=== PATIENT | female | born 1980 | race Caucasian/White ===

== ENCOUNTER → 2016-11-29 | Outpatient (CLI) | payer BC ==
--- NOTE | 2016-11-29 14:53 | RADIOLOGY REPORT (SQ) ---
EXAM DESCRIPTION: HYSTERO W/WO COLR FLW DOPPLER COMPLETED DATE/TIME: 11/29/2016 2:27 pm REASON FOR STUDY: INFERTILITY N97.9 FEMALE INFERTILITY, UNSPECIFIED COMPARISON: None. TECHNIQUE: Dynamic and static grayscale images acquired of the pelvis via transvaginal approach and recorded on PACS. Additional selected color Doppler and spectral images recorded. Initial imaging of the pelvis was performed transvaginally, without a catheter in place. After insertion of a vaginal speculum, a 5 Frenchhysterosalpingogram catheter was placed with the tip in the cervix/lower uterine segment. Speculum removed, and repeat endovaginal ultrasound was perform ed during gentle hand injection of sterile saline into the endometrial canal. LIMITATIONS: None. FINDINGS: UTERUS: Contour normal. No mass. The uterus measures 9 x 4.7 x 4 cm in size. ENDOMETRIAL STRIPE: No focal or generalized thickening. No masses. No endometrial polyps or cysts. O n the pre saline images, endometrial stripe measures 10 mm in thickness. On the post saline images, there is no evidence of synechiae. Smooth endometrial surface. CERVIX: 7 mm nabothian cyst. RIGHT OVARY: No abnormal masses. Right ovary 1.5 x 1.6 x 1.4 cm in size RIGHT OVARY DOPPLER: Normal arterial vascular flow without evidence for torsion. LEFT OVARY: No abnormal masses. Left ovary 2.3 x 1.2 x 1.4 cm in size LEFT OVARY DOPPLER: Normal arterial vascular flow without evidence for torsion. FREE FLUID: None noted. OTHER: No other significant finding. IMPRESSION: NORMAL TRANSVAGINAL PELVIC ULTRASOUND WITH HYSTEROSONOGRAM TECHNIQUE. TECHNICAL DOCUMENTATION: JOB ID: [id number] All Rights Reserved
== END ==
LOC: RAD 12:39
PROVIDERS: ATTEND Obstetrics & Gynecology Reproductive Endocrinology
DX: N97.9 Female infertility, unspecified (principal)
CPT/HCPCS: 76831